=== PATIENT | male | born 1985 | race American Indian/Alaskan Native ===

== ENCOUNTER 2017-06-18 13:26 | Emergency (ER) | payer MEDICARE ==
[2017-06-18 13:53] VITALS: BP 144/90; PULSE 87; RESP 18; TEMP 98.6; O2SAT 99
--- NOTE | 2017-06-18 14:30 | ED PDOC ---
HPI: Psych/Substance Abuse Time Seen by Provider: 06/18/17 13:45 Chief Complaint (Nursing): Psychiatric Evaluation Chief Complaint (Provider): Insomnia History Per: Patient History/Exam Limitations: no limitations Onset/Duration Of Symptoms: Days (x2) Current Symptoms Are (Timing): Still Present Suicide/Self Injury Attempted (Context): None Modifying Factor(s): None Severity: None Involuntary Hold By: None Additional Complaint(s): 31 year old male with a past medical history of paranoid schizophrenia presents to the emergency department complaining of insomnia x2 days. Patient reports that he has been up for at least 48 hours. Of note: Patient currently takes depacol and seroquil Past Medical History Reviewed: Historical Data, Nursing Documentation, Vital Signs Vital Signs: Last Vital Signs Temp 98.6 F 06/18/17 13:51 Pulse 87 06/18/17 13:51 Resp 18 06/18/17 13:51 BP 144/90 06/18/17 13:51 Pulse Ox 99 06/18/17 13:51 - Medical History PMH: Schizophrenia (paranoia) - Surgical History Surgical History: No Surg Hx - Family History Family History: States: Unknown Family Hx - Social History Current smoker - smoking cessation education provided: No Ex-Smoker (has not smoked in the last 12 months): No Alcohol: None Drugs: Denies - Home Medications Home Medications: Ambulatory Orders Medication Instructions Recorded hydrOXYzine Pamoate [Vistaril] 50 mg PO DAILY #6 cap 06/18/17 - Allergies Allergies/Adverse Reactions: Allergies Allergy/AdvReac Type Severity Reaction Status Date / Time No Known Allergies Allergy Verified 06/18/17 13:51 Review of Systems ROS Statement: Except As Marked, All Systems Reviewed And Found Negative Constitutional: Positive for: Other (Insomnia). Negative for: Fever Cardiovascular: Negative for: Chest Pain Respiratory: Negative for: Shortness of Breath Physical Exam - Reviewed Nursing Documentation Reviewed: Yes Vital Signs Reviewed: Yes - Physical Exam Appears: Positive for: Non-toxic, No Acute Distress Head Exam: Positive for: NORMAL INSPECTION Skin: Positive for: Normal Color, Warm, Dry. Negative for: Rash Eye Exam: Positive for: Normal appearance, EOMI, PERRL Neck: Positive for: Normal, Painless ROM, Supple Cardiovascular/Chest: Positive for: Regular Rate, Rhythm, Chest Non Tender. Negative for: Tachycardia Respiratory: Positive for: Normal Breath Sounds. Negative for: Wheezing, Respiratory Distress Gastrointestinal/Abdominal: Positive for: Normal Exam, Bowel Sounds, Soft Extremity: Positive for: Normal ROM. Negative for: Tenderness, Deformity, Swelling Neurologic/Psych: Positive for: Alert, Oriented, Gait - ECG O2 Sat by Pulse Oximetry: 99 (RA) Pulse Ox Interpretation: Normal Medical Decision Making Medical Decision Makin Initial Impression 31 year old male presenting with insomnia Initial Plan: [address] López, diagnosis schizophrenia Dr. López requests prescription for vistaril 50mg daily at night to assist with sleep. Documented by Missy Jim acting as a scribe for Desiree Pantoja. All medical record entries made by the Scribe were at my direction and personally dictated by me. I have reviewed the chart and agree that the record accurately reflects my personal performance of the history, physical exam, medical decision making, and the department course for this patient. I have also personally directed, reviewed, and agree with the discharge instructions and disposition. Disposition - Clinical Impression Clinical Impression: Insomnia - Patient ED Disposition Is Patient to be Admitted: No - Disposition Disposition: Routine/Home Disposition Time: 14:47 Condition: FAIR Prescriptions: hydrOXYzine Pamoate [Vistaril] 50 mg PO DAILY #6 cap Instructions: Insomnia Forms: [facility] (Spanish) - POA Present On Arrival: None
== END 2017-06-18 14:57 | disposition home or self-care (01) ==
LOC: H.ER 13:26
DX: G47.00 Insomnia, unspecified (principal); Z87.891 Personal history of nicotine dependence; Z86.59 Personal history of other mental and behavioral disorders; Z00.8 Encounter for other general examination

== ENCOUNTER 2017-07-25 21:22 | Emergency (ER) | payer MEDICARE, MEDICAID ==
[2017-07-25 21:55] VITALS: BP 120/88; PULSE 100; RESP 18; TEMP 98.5; O2SAT 99
[2017-07-25 22:59] LABS: BASO % 0.3 % (0.0-2.0); EOS # 0.1 K/uL (0.0-0.7); EOS % 0.9 % (0.0-4.0); HEMOGLOBIN 14.7 g/dL (12.0-18.0); LYMPH # 1.6 K/uL (1.0-4.3); LYMPH % 17.7 % (20.0-40.0); MEAN CELL VOLUME 83.9 fl (80.0-94.0); MEAN CORPUSCULAR HEMOGLOBIN 28.6 pg (27.0-31.0); MEAN PLATELET VOLUME 8.9 fl (7.2-11.7); MONO # 0.7 K/uL (0.0-0.8); MONO % 7.6 % (0.0-10.0); NEUT # 6.5 K/uL (1.8-7.0); NEUT % 73.5 % (50.0-75.0); RBC 5.13 Mil/uL (4.40-5.90); RED CELL DISTRIBUTION WIDTH 15.6 % (11.5-14.5); WHITE BLOOD COUNT 8.9 K/uL (4.8-10.8)
[2017-07-25 23:12] LABS: ALBUMIN 4.3 g/dL (3.5-5.0); ALT/SGPT 42 U/L (21-72); AST/SGOT 22 U/L (17-59); BLOOD UREA NITROGEN 18 mg/dl (9-20); CALCIUM 9.9 mg/dL (8.4-10.2); GFR AFRICAN-AMERICAN > 60; GFR NON-AFRICAN AMERICAN > 60
--- NOTE | 2017-07-26 01:17 | ED PDOC ---
HPI: Psych/Substance Abuse Time Seen by Provider: 07/25/17 21:37 Chief Complaint (Nursing): Psychiatric Evaluation Chief Complaint (Provider): Abdominal pain, "decompensating" History Per: Patient History/Exam Limitations: no limitations Onset/Duration Of Symptoms: Days Current Symptoms Are (Timing): Still Present Additional Complaint(s): 32 yo male with history of schizophrenia brought in for evaluation. Mother called EMS. Pt ordered and ate a lot of food and then began vomiting. Pt also states he is not feeling well mentally, denies SI/HI but reports decompensating. Pt reports abdominal pain, diffuse. Past Medical History Reviewed: Historical Data, Nursing Documentation, Vital Signs Vital Signs: Last Vital Signs Temp 98.5 F 07/25/17 21:46 Pulse 100 H 07/25/17 21:46 Resp 18 07/25/17 21:46 BP 120/88 07/25/17 21:46 Pulse Ox 99 07/25/17 21:46 - Medical History PMH: Schizophrenia (paranoia) - Surgical History Surgical History: No Surg Hx - Family History Family History: States: Unknown Family Hx - Living Arrangements Living Arrangements: With Family - Social History Current smoker - smoking cessation education provided: No - Home Medications Home Medications: Ambulatory Orders Medication Instructions Recorded hydrOXYzine Pamoate [Vistaril] 50 mg PO DAILY #6 cap 06/18/17 - Allergies Allergies/Adverse Reactions: Allergies Allergy/AdvReac Type Severity Reaction Status Date / Time No Known Allergies Allergy Verified 06/18/17 13:51 Review of Systems ROS Statement: Except As Marked, All Systems Reviewed And Found Negative Constitutional: Negative for: Fever, Chills Cardiovascular: Negative for: Chest Pain Respiratory: Negative for: Cough Gastrointestinal: Positive for: Nausea, Vomiting, Abdominal Pain. Negative for : Diarrhea Psych: Negative for: Suicidal ideation Physical Exam - Reviewed Nursing Documentation Reviewed: Yes Vital Signs Reviewed: Yes - Physical Exam Appears: Positive for: Well, Non-toxic, No Acute Distress Head Exam: Positive for: ATRAUMATIC, NORMAL INSPECTION, NORMOCEPHALIC Skin: Positive for: Normal Color, Warm, DRY Eye Exam: Positive for: Normal appearance ENT: Positive for: Normal ENT Inspection Neck: Positive for: Normal, Painless ROM Cardiovascular/Chest: Positive for: Regular Rate, Rhythm Respiratory: Positive for: Normal Breath Sounds. Negative for: Accessory Muscle Use, Respiratory Distress Gastrointestinal/Abdominal: Positive for: Normal Exam, Soft. Negative for: Tenderness Back: Positive for: Normal Inspection Extremity: Positive for: Normal ROM Neurologic/Psych: Positive for: Alert, Oriented - Laboratory Results Result Diagrams: 07/25/17 22:56 07/25/17 22:56 - ECG O2 Sat by Pulse Oximetry: 99 Medical Decision Making Medical Decision Making: Crisis evaluation completed. Labs normal. Pt reports feeling better on re-evaluation. Disposition - Clinical Impression Clinical Impression: Schizophrenia - Patient ED Disposition Is Patient to be Admitted: No Counseled Patient/Family Regarding: Diagnosis, Need For Followup - Disposition Disposition: Routine/Home Disposition Time: 01:18 Condition: STABLE Instructions: Schizophrenia (DC)
== END 2017-07-26 04:40 | disposition home or self-care (01) ==
LOC: H.ER 21:22
DX: F20.9 Schizophrenia, unspecified (principal); Z00.8 Encounter for other general examination
CPT/HCPCS: 80053; 83690; 85025; 96374; 99283; G0480; J1885; J2765